=== PATIENT | female | born 1930 | race Caucasian/White ===

== ENCOUNTER 2017-07-05 16:08 | Emergency (ER) | payer MEDICARE, OTHER ==
[2017-07-05] MEDS ORDERED: Potassium Chloride 10 MEQ Tab.ER PO ONE (16:09)
[2017-07-05] MEDS ORDERED: Nitrofurantoin Monohydrate/Macrocrystalline 100 MG Cap PO ONE (16:09)
[2017-07-05 18:00] VITALS: BP 121/58
[2017-07-05 18:00] LABS: ANION GAP 17.1; CHLORIDE,CL 99 mmol/L (101-111); SODIUM,NA 134 mmol/L (135-145)
[2017-07-05] MEDS ORDERED: Nitrofurantoin Monohydrate/Macrocrystalline 100 MG Cap ONE (18:22)
[2017-07-05] MEDS ORDERED: Potassium Chloride 10 MEQ Tab.ER ONE (18:22)
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
== END 2017-07-05 18:29 | disposition home or self-care (01) ==
LOC: DL.ED 16:08
DX: E87.6 Hypokalemia (principal); N39.0 Urinary tract infection, site not specified; E78.00 Pure hypercholesterolemia, unspecified; I10 Essential (primary) hypertension; Z88.1 Allergy status to other antibiotic agents; Z79.82 Long term (current) use of aspirin; Z79.899 Other long term (current) drug therapy
CPT/HCPCS: 36415; 80053; 81001; 83605; 84484; 85025; 87040; 87086; 87088; 87186; 87804; 99283; A9270-GY